=== PATIENT | female | born 1945 | race Caucasian/White ===

== ENCOUNTER → 2016-12-24 | Outpatient (CLI) | payer MEDICARE, BC ==
--- NOTE | 2016-12-24 15:41 | RADRPT ---
PROCEDURE: XR Left hip and pelvis. CLINICAL INDICATION: Left hip pain and pelvic pain. TECHNIQUE: 3 views. Frontal pelvis. Frontal and lateral left hip. COMPARISON: None. FINDINGS: There is no fracture or dislocation. The soft tissues are normal. There are moderate degenerative changes of the right hip with joint space narrowing at osteophytes. There are severe degenerative changes of the left hip with joint space narrowing, osteophytes, suba rticular sclerosis, and for may be. There are degenerative changes of the lower lumbar spine. There is no lytic or blastic lesion. IMPRESSION: 1. Moderate degenerative changes of the right hip. 2. Severe degenerative changes of the left hip. 3. Degenerative changes of the lower lumbar spine. RPTAT: QQ .Virgilio García MD, Date Time Electronically viewed and signed by .Virgilio García MD, on 12/24/2016 15:41 .R/
== END | disposition home or self-care (01) ==
LOC: HKI 08:31
PROVIDERS: ATTEND Orthopaedic Surgery
DX: M25.552 Pain in left hip (principal); M16.12 Unilateral primary osteoarthritis, left hip
CPT/HCPCS: 73502; G0463